=== PATIENT | male | born 1945 | race Caucasian/White ===

== ENCOUNTER 2020-04-12 06:09 | Day surgery (SDC) | payer MEDICARE, OTHER, SELFPAY ==
[2020-04-10 15:10] VITALS: BMI 26.4
--- NOTE | 2020-04-12 06:26 | W.PM.OPSUD ---
Surgery/Procedure H&P Update DATE OF PROCEDURE: April 12, 2020 DATE H&P PERFORMED: 03/16/20 H&P UPDATE INFORMATION: I have reviewed H&P completed within last 30 days, I have examined patient prior to procedure and No changes to prior documentation PREOP DIAGNOSIS: Screening colonoscopy PRIMARY INDICATION FOR PROCEDURE: The same PLANNED PROCEDURE: Operation Date: 04/12/20 07:00 Proposed Procedures p Colonoscopy 16190 Z12.11(Not Applicable) - Gary Alford MD
[2020-04-12 06:28] VITALS: BP 115/84; PULSE 62; RESP 20; TEMP 36.1; O2SAT 96
[2020-04-12] MEDS: sodium chloride 0.9% 1,000 ML 30 ML IV (06:37)
--- NOTE | 2020-04-12 06:40 | ANES.PREANE2 ---
Pre-Anesthetic Assessment Pre-Anesthetic Assessment: Height/Weight: Height 1.8 m Weight 86.183 kg Temp Pulse Resp BP Pulse Ox 97 F L 62 20 H 115/84 96 04/12/20 06:28 04/12/20 06:28 04/12/20 06:28 04/12/20 06:28 04/12/20 06:28 Preop Diagnosis: Screening colonoscopy Proposed Procedure: Operation Date: 04/12/20 07:00 Proposed Procedures p Colonoscopy 31691 Z12.11(Not Applicable) - Gary Alford MD Last intake: Intake Last Liquid Date 04/11/20 Last Liquid Time 20:00 Last Solid Date 04/10/20 Last Solid Time 23:59 Social: Social History: No alcohol and No tobacco Exam: Pre-Anes Outpt Exam: alert, oriented x 3, clear to auscultation bilaterally and regular rate & rhythm Airway: Submandibular: WNL MP: 2 Dentition: False History/ROS: No significant history except as noted and No significant complaints Pulmonary: Pulmonary: None reported CV/HEM: CV/HEM: HTN : : None reported Hepatic: Hepatic: None reported GI: GI: GERD Metabolic: Metabolic: None reported Musc/skel: Musc/skel: None reported Neuropsych: Neuropsych: None reported Anesthetic Plan: ASA status: 2 Anesthesia: MAC Risk of > 500 ml blood loss (7ml/kg in children): No Meds/Allergies Current Medications: Current Medications Generic Name Dose Route Start Last Admin Trade Name Freq PRN Reason Stop Dose Admin Sodium Chloride 1,000 mls @ 30 ml s/hr 04/12/20 06:30 04/12/20 06:37 Sodium Chloride 0.9% IV 30 mls/hr .Q24H LOUANN Administration PFSH Anesthesia PFSH: Medical History Constipation GERD (gastroesophageal reflux disease) Hypertension Screen for colon cancer Surgical History History of right inguinal hernia repair Family History Denies family history of Anesthesia complication Bleeding disorder Social History Smoking and tobacco status: never smoked Second hand smoke exposure: No Alcohol intake: never Adopted: No Caregiver/support person: Yes Lives independently: Yes Household members: spouse Housing: House Marital status: service: No Current occupational status: retired Current occupational exposures/hazards: No Pets and animals: No History of recent travel: No Sexually active: No Current gender identity: Male Leyla/Jehovah'S Witness: Gnosticism Special leyla needs: No Agree to transfusion: No Financial difficulty paying for basics: Decline to Answer Data Anesthesia Cardiac Studies: No Data to Display
[2020-04-12 07:11] VITALS: BP 112/71; PULSE 56; RESP 16; TEMP 36.4; O2SAT 96
--- NOTE | 2020-04-12 07:21 | ANE.PACU2 ---
Inpatient post-anesthesia follow up: Airway intact: Yes Vital signs: Temperature 97.6 F Pulse Rate 56 Respiratory Rate 16 Blood Pressure 112/71 Pulse Oximetry 96 Oxygen Delivery Me thod Nasal Cannula Oxygen Flow Rate 3 Fraction of Inspir ed Oxygen Hydration adequate: Yes Nausea and vomiting: No Mental status: Baseline
[2020-04-12 07:25] VITALS: BP 130/92; PULSE 53; RESP 16; O2SAT 99
== END 2020-04-12 07:30 | disposition home or self-care (01) ==
PROVIDERS: PCP Family Medicine; Visit Provider Surgery
PROC: 0DJD8ZZ Inspection of Lower Intestinal Tract, Via Natural or Artificial Opening Endoscopic (ICD-10-PCS; CPT 45378; principal; 2020-04-12 07:00)
DX: Z12.11 Encounter for screening for malignant neoplasm of colon (principal); D12.5 Benign neoplasm of sigmoid colon; I10 Essential (primary) hypertension; K21.9 Gastro-esophageal reflux disease without esophagitis
CPT/HCPCS: 12345; 45384; 88305; J2001; J2704; J7030

== ENCOUNTER → 2023-07-04 08:40 | Outpatient (BNVA) | payer MEDICARE, SELFPAY | PROVIDERS: PCP Family Medicine; Visit Provider Family Medicine | DX: Z51.81 Encounter for therapeutic drug level monitoring (principal); E78.5 Hyperlipidemia, unspecified; R73.03 Prediabetes; R35.0 Frequency of micturition; Z13.220 Encounter for screening for lipoid disorders | CPT/HCPCS: 80053; 80061; 83036; 84153; 85025 ==

== ENCOUNTER → 2024-04-29 09:38 | Outpatient (BNVA) | payer MEDICARE, SELFPAY | PROVIDERS: PCP Family Medicine; Visit Provider Family Medicine | DX: R10.13 Epigastric pain (principal); E78.5 Hyperlipidemia, unspecified; R35.0 Frequency of micturition; Z51.81 Encounter for therapeutic drug level monitoring; Z13.220 Encounter for screening for lipoid disorders; R01.1 Cardiac murmur, unspecified; K29.70 Gastritis, unspecified, without bleeding; I10 Essential (primary) hypertension; K59.00 Constipation, unspecified | CPT/HCPCS: 80053; 80061; 83690; 84153; 85025; 86141; 87338 ==

== ENCOUNTER → 2024-04-30 09:40 | Outpatient (BNVA) | payer MEDICARE, SELFPAY | PROVIDERS: PCP Family Medicine; Visit Provider Family Medicine | DX: K59.00 Constipation, unspecified (principal) | CPT/HCPCS: 87338 ==

== ENCOUNTER 2024-05-06 10:00 | Outpatient (CLI) | payer MEDICARE, OTHER, SELFPAY ==
--- NOTE | 2024-05-06 10:00 | USCV_ITS ---
Ted Fuentes Age: 78 Gender: M : 1945 Exam Date: 05/06/2024 10:22 Ordering Phys: Nino Rivas MD Technologist: Exam Location: [facility] [place] Indication: murmur BP: 130 / 80 HR: 76 Rhythm: Sinus Technical Quality: Adequate MEASUREMENTS (Male / Female) Normal Values 2D ECHO LV Diastolic Diameter PLAX 4.5 cm 4.2 - 5.9 / 3.9 - 5.3 cm IVS Diastolic Thickness 1.3 cm 0.6 - 1.0 / 0.6 - 0.9 cm IVS Systolic Thickness 1.6 cm LVPW Diastolic Thickness 1.2 cm 0.6 - 1.0 / 0.6 - 0.9 cm LVPW Systolic Thickness 1.7 cm LVOT Diameter 2.0 cm LV Ejection Fraction 2D Teich 69.9 % LV Ejection Fraction MOD 4C 52.3 % LV Ejection Fraction MOD 2C 70.6 % LV Ejection Fraction 2C AL 71.2 % LA Diameter 3.2 cm RA Systolic Volume 4C AL 55.4 ml RA Systolic Volume 4C MOD 52.8 ml M-MODE LA Ao Ratio MM 1.1 AV Cusp Separation MM 1.0 cm DOPPLER AV Peak Velocity 267.0 cm/s LVOT Peak Velocity 104.0 cm/s AV Area Cont Eq vti 1.6 cm squared AV Area Cont Eq pk 1.3 cm squared MV Peak Velocity 111.0 cm/s MV Area PHT 2.6 cm squared Mitral E to A Ratio 0.7 TV Peak Velocity 133.5 cm/s TR Peak Velocity 199.0 cm/s TR Peak Gradient 15.8 mmHg TV Peak E Velocity 64.0 cm/s Right Atrial Pressure 3.0 mmHg Pulmonary Artery Systolic Pressu 18.8 mmHg PV Peak Velocity 130.0 cm/s FINDINGS Left Ventricle Normal left ventricular size and systolic function, EF 65% . No regional wall motion abnormalities. Mild left ventricular hypertrophy. Grade I/IV diastolic dysfunction (abnormal relaxation filling pattern), normal to mildly elevated filling pressures. Right Ventricle The right ventricle is normal in size and function. Right Atrium The right atrium is normal in size. Left Atrium The left atrium is normal in size. Mitral Valve Structurally normal mitral valve. Aortic Valve Mild aortic valve stenosis, mean gradient 11 mmHg, MARINO 1.6 cm squared. Trace aortic valve regurgitation. Tricuspid Valve No gross abnormalities no Pulmonic Valve No pulmonary valve stenosis. Pericardium Normal pericardium without effusion. Aorta Normal ascending aorta dimension. IVC Normal inferior vena cava. CONCLUSIONS Normal left ventricular size and systolic function, EF 65% . No regional wall motion abnormalities. Mild left ventricular hypertrophy. Grade I/IV diastolic dysfunction (abnormal relaxation filling pattern), normal to mildly elevated filling pressures. Mild aortic valve stenosis, mean gradient 11 mmHg, MARINO 1.6 cm squared. Peak velocity of 2.67 m/s, with a peak gradient of 28 mmHg Trace aortic valve regurgitation. There is no pericardial effusion. There are no intracardiac masses. No similar previous studies are available for comparison Dr Hollie Villagran MD FACC (Electronically Signed) Final Date: 07 May 2024 01:21 S
== END 2024-05-06 10:04 | disposition home or self-care (01) ==
PROVIDERS: PCP Family Medicine; Visit Provider Family Medicine
DX: R01.1 Cardiac murmur, unspecified (principal); I95.1 Orthostatic hypotension; I50.30 Unspecified diastolic (congestive) heart failure
CPT/HCPCS: 93306

== ENCOUNTER 2024-05-21 10:54 | Outpatient (CLI) | payer MEDICARE, OTHER, SELFPAY ==
--- NOTE | 2024-05-21 11:00 | CTR_ITS ---
PROCEDURE INFORMATION: Exam: CT Abdomen And Pelvis With Contrast Exam date and time: 05/21/2024 12:05 PM Age: 78 years old Clinical indication: Abdominal pain; Localized; Lower; Patient HX: Persistent low abdomen pain and chronic constipation; Additional info: Persistent constipation/abdominal pain TECHNIQUE: Imaging protocol: Computed tomography of the abdomen and pelvis with contrast. Radiation optimization: All CT scans at this facility use at least one of these dose optimization techniques: automated exposure control; mA and/or kV adjustment per patient size (includes targeted exams where dose is matched to clinical indication); or iterative reconstruction. Contrast material: OMNI 350; Contrast volume: 100 ml; Contrast route: INTRAVENOUS (IV); COMPARISON: No relevant prior studies available. RADIATION DOSE METRICS: Total DLP (mGy-cm): 475.77 FINDINGS: Liver: Normal. No mass. Gallbladder and biliary ducts: Normal. No calcified stones. No ductal dilation. Pancreas: Normal. No ductal dilation. Spleen: Normal. No splenomegaly. Adrenal glands: Normal. No mass. Kidneys and ureters: Normal. No hydronephrosis. Stomach and bowel: Colonic diverticula are present although there are no CT findings to suggest diverticulitis. No bowel obstruction or wall thickening. Appendix: The appendix is visualized and appears normal. Intraperitoneal space: Unremarkable. No free air. No significant fluid collection. Vasculature: Unremarkable. No abdominal aortic aneurysm. Lymph nodes: Unremarkable. No enlarged lymph nodes. Urinary bladder: Unremarkable as visualized. Reproductive: Unremarkable as visualized. Bones/joints: Degenerative change is identified in the spine. Soft tissues: Unremarkable. CT/CT abdomen pelvis w con* [id number] IMPRESSION: There are no acute concerning abnormalities.
[2024-05-21] MEDS: iohexol 350 mg/mL 500 mL Btl (per mL) IV (12:10)
[2024-05-21] MEDS: iohexol 350 mg/mL 500 mL Btl (per mL) PO (12:10)
== END 2024-05-21 10:55 | disposition home or self-care (01) ==
LOC: RAD 10:55
PROVIDERS: PCP Family Medicine; Visit Provider Clinical Nurse Specialist Adult Health
DX: K59.00 Constipation, unspecified (principal); R10.13 Epigastric pain; K57.30 Diverticulosis of large intestine without perforation or abscess without bleeding
CPT/HCPCS: 74177; Q9967

== ENCOUNTER → 2024-09-08 08:58 | Outpatient (BNVA) | payer MEDICARE, OTHER, SELFPAY | PROVIDERS: PCP Family Medicine; Visit Provider Family Medicine | DX: R10.9 Unspecified abdominal pain (principal); K59.00 Constipation, unspecified; R10.13 Epigastric pain; R53.81 Other malaise; R53.83 Other fatigue; E55.9 Vitamin D deficiency, unspecified; Z51.81 Encounter for therapeutic drug level monitoring; E53.8 Deficiency of other specified B group vitamins | CPT/HCPCS: 80053; 82306; 82607; 83690; 83735; 84439; 84443; 85025; 86141 ==

== ENCOUNTER 2024-12-02 18:53 | Emergency (ER) | payer MEDICARE, OTHER, SELFPAY ==
--- NOTE | 2024-12-02 20:27 | CTR_ITS ---
PROCEDURE INFORMATION: Exam: CT Head Without Contrast Exam date and time: 12/02/2024 8:49 PM Age: 79 years old Clinical indication: Injury or trauma; Fall; Laceration; Without residual foreign body; Forehead; Additional info: Fall/head injury/open scalp wound TECHNIQUE: Imaging protocol: Computed tomography of the head without contrast. Radiation optimization: All CT scans at this facility use at least one of these dose optimization techniques: automated exposure control; mA and/or kV adjustment per patient size (includes targeted exams where dose is matched to clinical indication); or iterative reconstruction. COMPARISON: No relevant prior studies available. RADIATION DOSE METRICS: Total DLP (mGy-cm): 1224.28 FINDINGS: Brain: Mineralization of bilateral basal ganglia, age-related. Age related diffuse parenchymal volume loss. No recent infarct, intracranial bleed or mass effect. Cerebral ventricles: Ex vacuo dilatation of the ventricles. Paranasal sinuses: Visualized sinuses are unremarkable. No fluid levels. Mastoid air cells: Visualized mastoid air cells are well aerated. Bones: Unremarkable. No acute fracture. Soft tissues: There is a left frontal scalp laceration. CT/CT head wo con* [id number] IMPRESSION: No acute intracranial posttraumatic changes.
--- NOTE | 2024-12-02 20:27 | CTR_ITS ---
PROCEDURE INFORMATION: Exam: CT Cervical Spine Without Contrast Exam date and time: 12/02/2024 8:52 PM Age: 79 years old Clinical indication: Injury or trauma; Fall; Laceration; Without foreign body; Additional info: Fall/head injury TECHNIQUE: Imaging protocol: Computed tomography of the cervical spine without contrast. Radiation optimization: All CT scans at this facility use at least one of these dose optimization techniques: automated exposure control; mA and/or kV adjustment per patient size (includes targeted exams where dose is matched to clinical indication); or iterative reconstruction. COMPARISON: CT head wo con* [id number] 12/02/2024 8:49 PM RADIATION DOSE METRICS: Total DLP (mGy-cm): 214.37 FINDINGS: Bones: The cervical spine demonstrates mild degenerative changes at multiple levels. Mild degenerative at the anterior C1-C2 articulation. No compression deformity. No acute fracture. No spondylolisthesis. Lungs: Bilateral apical fibrotic changes. Vasculature: There are bilateral carotid artery calcified atheromas. Soft tissues: Unremarkable. CT/CT cervical spin wo con* [id number] IMPRESSION: No acute posttraumatic changes in the cervical spine.
--- NOTE | 2024-12-02 20:52 | ED_ITS ---
HPI - Wound/Laceration General: Chief Complaint: Wound/Laceration Stated Complaint: Fell and hit head Time Seen by Provider: 12/02/24 19:48 Source: patient and family Mode of arrival: ambulatory Limitations: no limitations History of Present Illness: Patient is a 79-year-old male who presents the emergency department with head injury occurring few hours prior to arrival. Patient reportedly tripped hit his head on the corner of [facility], he is not on blood thinners and did not lose consciousness though he does have a pretty extensive laceration to left parietal scalp region. Bleeding is controlled with direct pressure. Tetanus not up-to-date. Has not had any trouble walking, or demonstrate any other focal neurological deficits. Family in the room states he has been acting appropriately at baseline. No vomiting, seizure-like activity, or other symptoms. States pain is in control, he just feels a burning sensation to his scalp. No other injuries with the fall. Onset (ago): hour(s) Location: scalp Place: home Patient tetanus UTD: No Context: accidental Associated symptoms: Reports no associated symptoms; Denies chills, fever(s), nausea or vomiting Treatments prior to arrival: bandage Related Data Previous Rx's ?Medication ?Instructions ?Recorded omeprazole 40 mg capsule,delayed See Rx Instructions . Route 03/23/24 release .COMPLEX #90 caps pravastatin 40 mg tablet See Rx Instructions .Route 0 03/23/24 .COMPLEX #90 tabs lisinopril 2.5 mg tablet See Rx Instructions .Route 0 06/07/24 .COMPLEX #60 tabs lactulose 10 gram/15 mL (15 mL) 10 g (15 mL) PO BID NC N 07/27/24 oral solution constipation #300 mL linaclotide 145 mcg capsule 145 mcg PO DAILY #30 caps 09/08/24 (Linzess) cholecalciferol (vitamin D3) 50 50 mcg PO DAILY #30 ca ps 09/21/24 mcg (2,000 unit) capsule amoxicillin 875 mg-potassium 1 tab PO BID 10 days #20 tabs 12/02/24 clavulanate 125 mg tablet Allergies Allergy/AdvReac Type Severity Reaction Status Date / Time azithromycin Allergy ADR-Nausea Verified 12/02/24 19:18 Review of Systems General: Reports: 10 or more systems reviewed and unremarkable except in HPI and below Const: Reports: other (Reports fall/head injury); Denies: fever(s) or chills Eyes: Denies: change in vision Card: Denies: chest pain Resp: Denies: dyspnea GI: Denies: abdominal pain, nausea, vomiting or diarrhea Musc: Denies: neck pain, extremity pain or joint pain Skin/Breast: Reports: new lesions (Laceration to left parietal scalp); Denies: rash, skin pain or skin tenderness Neuro: Denies: headache(s), numbness in extremities, weakness in extremities, lack of coordination, difficulty walking, dizziness, confusion, behavioral changes, Slurred speech present or seizure-like activity [facility] PFSH: Medical History GERD (gastroesophageal reflux disease) Hypertension Constipation Screen for colon cancer Surgical History History of right inguinal hernia repair Family History Mother Valvular heart disease Lung disease Father CAD (coronary artery disease) Denies family history of Anesthesia complication Bleeding disorder Social History Smoking and tobacco/nicotine status: never used tobacco/nicotine Second hand smoke exposure: No Alcohol intake: current Alcohol intake frequency: holidays/special occasions only Substance/Drug Use: never Additional social history: Chews tobacco - 1 can every 1-2 days [email or web address] 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 Adopted: No Caregiver/support person: Yes Lives independently: Yes Household members: spouse Housing: House Marital status: service: No Current occupational status: retired Current occupational exposures/hazards: No Pets and animals: No Sexually active: No Do you think of yourself as: Straight/Heterosexual Current gender identity: Male Leyla/Catholic: Tenriism Special leyla needs: No Agree to transfusion: No Physical Exam Const: COMMON NORMALS: no acute distress, patient oriented x3 and no limitations GENERAL APPEARANCE: cooperative, comfortable and well developed ORIENTATION/CONSCIOUSNESS: Yes awake, Yes oriented to person, Yes oriented to place and Yes oriented to time HENMT: OTHER: No Houser sign or raccoon eyes. There is a very large, shear type laceration to left parietal scalp that comes in contact with the hairline of the forehead. Little to no approximation with this wound and questionable evidence of depth directly to the skull. No active bleeding. Contaminated by hair, no other obvious contamination that is organic. Eye: COMMON NORMALS: Equal, round and reactive pupils present, EOMs intact bilaterally and conjunctivae normal CONJUNCTIVA: Yes conjunctivae normal PUPIL: Yes Equal, round and reactive pupils present OTHER: Eyes track midline, no nystagmus. Neck/C-Spine: COMMON NORMALS: full ROM, supple and no JVD Resp: COMMON NORMALS: normal respiratory effort, No retractions, No use of accessory muscles and clear to auscultation bilaterally AUSCULTATION: clear to auscultation bilaterally Cardio: COMMON NORMALS: no JVD, regular rate, regular rhythm, No clicks present (Cardio), No murmurs present (Cardio) and No rub (Cardio) RATE: regular rate RHYTHM: regular rhythm GI: COMMON NORMALS: Normal to inspection, nondistended, normoactive bowel sounds present, Soft to palpation and non-tender AUSCULTATION: Yes normoactive bowel sounds PALPATION: Yes Soft to palpation RECTAL EXAM: Yes deferred Extremity: COMMON NORMALS: normal to inspection, full ROM and capillary refill normal Neuro: COMMON NORMALS: patient oriented x3, CN's II-XII intact bilaterally, moves all extremities, no focal motor deficits and no sensory deficits noted SENSORIUM/ORIENTATION: Yes oriented to person, Yes oriented to place and Yes oriented to time COORDINATION/BALANCE: [id number] test normal and [id number] test normal SPEECH: speech normal GAIT: Yes Normal gait present MOTOR EXAM: 5/5 motor strength present throughout, Pronator motor function not present, no tremor noted, no asterixis and Motor fasciculations not present COORDINATION: [id number] test normal and [id number]-ps-[id number] test normal Skin: COMMON NORMALS: no rashes or lesions noted GENERAL SKIN EXAM: no rashes or lesions noted Course Vital Signs: Vital signs: Vital Signs Pulse Rate 74 12/02/24 21:20 Blood Pressure 102/55 12/02/24 21:20 Pulse Oximetry 94 12/02/24 21:20 Oxygen Delivery Me thod Room Air 12/02/24 21:20 MDM - Wound/Laceration Medical Decision Making Patient fell causing extensive laceration to left parietal scalp. Head and neck CT did not demonstrate any intracranial findings or posttraumatic changes, respectively. He was not on a blood thinner and bleeding was controlled on arrival. There was essentially no approximation of the wound as there was shear type laceration and missing skin evidence. Evidence to that this was directly to the base of the skull, however could be overlying adipose tissue. Ultimately I spoke with plastic surgery at [facility], Dr. Singh, who kindly agrees to see the patient tomorrow in the office and provided number to call. She also recommended extensive irrigation with mixture Betadine normal saline, applying triple antibiotic and covering with Xeroform dressing. Will start the patient on Augmentin and have him return in the meantime with any new or concerning symptoms. Patient and family in the room agreed with this plan. His tetanus was updated today. Lab Data Radiology Impressions Cervical Spine CT 12/02/24 20:27 IMPRESSION: No acute posttraumatic changes in the cervical spine. Head CT 12/02/24 20:27 IMPRESSION: No acute intracranial posttraumatic changes. All radiology interpretation(s) finalized by discharge Discharge Plan Discharge Patient Disposition: Home Clinical Impression: Open head injury Qualifiers: Encounter type: initial encounter Qualified Code(s): S01.90XA - Unspecified open wound of unspecified part of head, initial encounter Condition: Stable Prescriptions: New amoxicillin-pot clavulanate 875-125 mg tablet 1 tab PO BID 10 Days Qty: 20 0RF No Action Linzess 145 mcg capsule 145 mcg PO DAILY Qty: 30 6RF lisinopril 2.5 mg tablet See Rx Instructions .ROUTE .COMPLEX Qty: 60 3RF Dose Instruction: TAKE 1 TABLET BY MOUTH EVERY DAY Rx Instructions: TAKE 1 TABLET BY MOUTH EACH AM and extra 2.5mg in the evening if BP>140/80 lactulose 10 gram/15 mL (15 mL) solution 10 g PO BID PRN (Reason: constipation) Qty: 300 3RF omeprazole 40 mg capsule,delayed release(DR/EC) See Rx Instructions .ROUTE .COMPLEX Qty: 90 3RF Dose Instruction: TAKE 1 CAPSULE BY MOUTH EVERY MORNING Rx Instructions: TAKE 1 CAPSULE BY MOUTH EVERY MORNING pravastatin 40 mg tablet See Rx Instructions .ROUTE .COMPLEX Qty: 90 3RF Dose Instruction: TAKE 1 TABLET BY MOUTH AT BEDTIME Rx Instructions: TAKE 1 TABLET BY MOUTH AT BEDTIME cholecalciferol (vitamin D3) 50 mcg (2,000 unit) capsule 50 mcg PO DAILY Qty: 30 6RF Discharge Orders: Discharge ED (Routine); Ordered 12/02/24 Ordered By: Ted Henderson Referrals: Nino Rivas MD [Primary Care Provider] - Activity Restrictions/Additional Instructions: Please keep the wound covered and take the antibiotics as prescribed. You will call [facility] plastic surgery tomorrow morning at to schedule a ppointment tomorrow for consultation. Address for this is [address] [place] [id number]. Return in the meantime with any new or worsening. Ibuprofen and Tylenol for pain. Your tetanus has been updated today 12/02/2024. Print Language: [place] Coding Level of Care Code ED [employer] Rep[employer]cer for Paul Dietz
[2024-12-02 21:20] VITALS: BP 102/55; PULSE 74; O2SAT 94
[2024-12-02] MEDS: mupirocin oint 22 gm 1 APPLIC TOPICAL (22:00)
[2024-12-02] MEDS: tetanus-dipt-pertussis 0.5 mL SDV IM (22:00)
[2024-12-02] MEDS: amoxicillin-clav 875-125 mg Tablet 1 TAB PO (22:00)
[2024-12-02 22:08] VITALS: BP 109/64; PULSE 74; O2SAT 96
== END 2024-12-02 22:09 | disposition home or self-care (01) ==
PROVIDERS: Emergency Provider Physician Assistant; PCP Family Medicine
DX: S01.90XA Unspecified open wound of unspecified part of head, initial encounter (principal); I10 Essential (primary) hypertension; W01.119A Fall on same level from slipping, tripping and stumbling with subsequent striking against unspecified sharp object, initial encounter
CPT/HCPCS: 70450; 72125; 90471; 90715; 99284

== ENCOUNTER 2024-12-05 10:39 | Emergency (ER) | payer MEDICARE, OTHER, SELFPAY ==
[2024-12-05 10:44] VITALS: PULSE 62; RESP 16; TEMP 36.7; O2SAT 94; BMI 25.5
--- NOTE | 2024-12-05 10:54 | CTR_ITS ---
PROCEDURE INFORMATION: Exam: CT Head Without Contrast Exam date and time: 12/05/2024 11:05 AM Age: 79 years old Clinical indication: Injury or trauma; Fall; Blunt trauma (contusions or hematomas); Additional info: Trauma, unsteady on feet TECHNIQUE: Imaging protocol: Computed tomography of the head without contrast. Radiation optimization: All CT scans at this facility use at least one of these dose optimization techniques: automated exposure control; mA and/or kV adjustment per patient size (includes targeted exams where dose is matched to clinical indication); or iterative reconstruction. COMPARISON: CT head wo con* [id number] 12/02/2024 8:49 PM RADIATION DOSE METRICS: Total DLP (mGy-cm): 1122.3 FINDINGS: Brain: [id number] periventricular white matter hypoattenuation. Diffuse age-appropriate cortical atrophy. No acute intracranial hemorrhage. Cerebral ventricles: No ventriculomegaly. Paranasal sinuses: Visualized sinuses are unremarkable. No fluid levels. Mastoid air cells: Visualized mastoid air cells are well aerated. Bones: Unremarkable. No acute fracture. Soft tissues: Anterior scalp swelling, hematoma as well as subcutaneous emphysema. Left anterior scalp skin yohannes are visualized. Vasculature: Calcification of the intracranial vertebral arteries. Calcification of the cavernous internal carotid arteries. CT/CT head wo con* [id number] IMPRESSION: 1. Anterior scalp swelling, hematoma and subcutaneous emphysema with visualized skin yohannes. No evidence of acute intracranial abnormality. 2. Pyjn-ty-bdvehubl chronic ischemic small-vessel disease. No acute intracranial hemorrhage.
[2024-12-05 12:21] VITALS: BP 131/73; PULSE 60; O2SAT 96
--- NOTE | 2024-12-05 14:41 | ED_ITS ---
HPI - Weakness General: Chief complaint: Weakness Stated complaint: unstabled (3 days post surgery) Time Seen by Provider: 12/05/24 10:43 History of Present Illness: This patient is a 79-year-old white male who presents to the emergency department with feeling off balance/unsteady on his feet. Patient fell on and sustained a head injury. He was evaluated here. He did have a scalp laceration which were repaired with yohannes. He did undergo head CT and C-spine CT during that visit and those were normal. He has not had any nausea or vomiting. No headache. Review of Systems General: Reports: 10 or more systems reviewed and unremarkable except in HPI and below Neuro: Reports: lack of coordination PFSH ED PFSH: Medical History GERD (gastroesophageal reflux disease) Hypertension Constipation Screen for colon cancer Surgical History History of right inguinal hernia repair Family History Mother Valvular heart disease Lung disease Father CAD (coronary artery disease) Denies family history of Anesthesia complication Bleeding disorder Social History Smoking and tobacco/nicotine status: never used tobacco/nicotine Second hand smoke exposure: No Alcohol intake: current Alcohol intake frequency: holidays/special occasions only Substance/Drug Use: never Additional social history: Chews tobacco - 1 can every 1-2 days [employer] fan Adopted: No Caregiver/support person: Yes Lives independently: Yes Household members: spouse Housing: House Marital status: service: No Current occupational status: retired Current occupational exposures/hazards: No Pets and animals: No Sexually active: No Do you think of yourself as: Straight/Heterosexual Current gender identity: Male Leyla/Episcopal: Catholic Special leyla needs: No Agree to transfusion: No Physical Exam Const: COMMON NORMALS: no acute distress, patient oriented x3 and no limitations GENERAL APPEARANCE: cooperative and comfortable HENMT: COMMON NORMALS: Normal nasal mucous membranes and turbinates present, moist oral mucous membranes and oropharynx normal FACE & SINUS: normal facial exam NOSE: Normal nasal mucous membranes and turbinates present OTHER: Ecchymosis beneath both eyes worse on the right. Scalp laceration intact with yohannes. Eye: COMMON NORMALS: Equal, round and reactive pupils present, EOMs intact bilaterally and conjunctivae normal GENERAL EYE: appearance normal, both eyes and all related structures CONJUNCTIVA: Yes conjunctivae normal PUPIL: Yes Equal, round and reactive pupils present Neck/C-Spine: COMMON NORMALS: supple and no JVD Chest: COMMONS NORMALS: normal inspection of the chest Resp: COMMON NORMALS: normal respiratory effort and clear to auscultation bilaterally AUSCULTATION: clear to auscultation bilaterally Cardio: COMMON NORMALS: no JVD, regular rate, regular rhythm, No gallops present (Cardio), No murmurs present (Cardio) and No rub (Cardio) RATE: regular rate RHYTHM: regular rhythm GI: COMMON NORMALS: Normal to inspection, nondistended, normoactive bowel sounds present, Soft to palpation and non-tender AUSCULTATION: Yes normoacti ve bowel sounds PALPATION: Yes Soft to palpation : COMMON NORMALS: Yes no CVA tenderness BLADDER/KIDNEY EXAM: Yes no CVA tenderness Back/Pelvis: COMMON NORMALS: no CVA tenderness and thoracic and lumbar spine normal to inspection Extremity: COMMON NORMALS: normal to inspection Neuro: COMMON NORMALS: patient oriented x3 and CN's II-XII intact bilaterally Psych: COMMON NORMALS: mental status grossly normal, Normal thought process present and cooperative THOUGHT PROCESS: Normal thought process present Skin: COMMON NORMALS: no rashes or lesions noted, turgor normal and no jaundice GENERAL SKIN EXAM: no rashes or lesions noted and turgor normal Course Vital Signs: Vital signs: Vital Signs Temperature 98.1 F 12/05/24 10:44 Pulse Rate 60 12/05/24 12:21 Respiratory Rate 16 12/05/24 10:44 Blood Pressure 131/73 12/05/24 12:21 Pulse Oximetry 96 12/05/24 12:21 Oxygen Delivery Me thod Room Air 12/05/24 10:44 MDM - Weakness Medical Decision Making Head CT was read by the radiologist as nothing acute. Patient was reassured. Follow-up with primary care provider as needed. He was discharged in stable condition. Lab Data Radiology Impressions Head CT 12/05/24 10:54 IMPRESSION: 1. Anterior scalp swelling, hematoma and subcutaneous emphysema with visualized skin yohannes. No evidence of acute intracranial abnormality. 2. Epmt-rg-[id number] chronic ischemic small-vessel disease. No acute intracranial hemorrhage. All radiology interpretation(s) finalized by discharge Discharge Plan Discharge Patient Disposition: Home Clinical Impression: Head injury Qualifiers: Encounter type: subsequent encounter Qualified Code(s): S09.90XD - Unspecified injury of head, subsequent encounter Condition: Stable Prescriptions: No Action lisinopril 2.5 mg tablet See Rx Instructions .ROUTE .COMPLEX Qty: 60 3RF Dose Instruction: TAKE 1 TABLET BY MOUTH EVERY DAY Rx Instructions: TAKE 1 TABLET BY MOUTH EACH AM and extra 2.5mg in the evening if BP>140/80 omeprazole 40 mg capsule,delayed release(DR/EC) See Rx Instructions .ROUTE .COMPLEX Qty: 90 3RF Dose Instruction: TAKE 1 CAPSULE BY MOUTH EVERY MORNING Rx Instructions: TAKE 1 CAPSULE BY MOUTH EVERY MORNING pravastatin 40 mg tablet See Rx Instructions .ROUTE .COMPLEX Qty: 90 3RF Dose Instruction: TAKE 1 TABLET BY MOUTH AT BEDTIME Rx Instructions: TAKE 1 TABLET BY MOUTH AT BEDTIME cholecalciferol (vitamin D3) 50 mcg (2,000 unit) capsule 50 mcg PO DAILY Qty: 30 6RF amoxicillin-pot clavulanate 875-125 mg tablet 1 tab PO BID 10 Days Qty: 20 0RF naproxen sodium [Aleve] 220 mg Tablet 440 mg PO Q12H PRN (Reason: Pain) Discharge Orders: Discharge ED (Routine); Ordered 12/05/24 Ordered By: Pedro Luis Bazan Referrals: Nino Rivas MD [Primary Care Provider] - Patient Instructions: Head Injury (DC) Print Language: Micronesian Coding Level of Care Code ED 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 Route 03/23/24 release .COMPLEX #90 caps pravastatin 40 mg tablet See Rx Instructions .Route 0 03/23/24 .COMPLEX #90 tabs lisinopril 2.5 mg tablet See Rx Instructions .Route 0 06/07/24 .COMPLEX #60 tabs cholecalciferol (vitamin D3) 50 50 mcg PO DAILY #30 ca ps 09/21/24 mcg (2,000 unit) capsule amoxicillin 875 mg-potassium 1 tab PO BID 10 days #20 tabs 12/02/24 clavulanate 125 mg tablet Allergies Allergy/AdvReac Type Severity Reaction Status Date / Time azithromycin Allergy ADR-Nausea Verified 12/02/24 19:18
== END 2024-12-05 12:21 | disposition home or self-care (01) ==
PROVIDERS: Emergency Provider Emergency Medicine; PCP Family Medicine
DX: S09.90XD Unspecified injury of head, subsequent encounter (principal); X58.XXXD Exposure to other specified factors, subsequent encounter; I10 Essential (primary) hypertension
CPT/HCPCS: 70450; 99284

== ENCOUNTER → 2024-12-27 15:01 | Outpatient (BNVA) | payer MEDICARE, OTHER, SELFPAY | PROVIDERS: PCP Family Medicine; Visit Provider Family Medicine | DX: R10.9 Unspecified abdominal pain (principal) | CPT/HCPCS: 82274; 83630; 83993; 87045; 87177; 87209; 87427; 87449 ==

== ENCOUNTER → 2025-01-11 11:14 | Outpatient (BNVA) | payer MEDICARE, OTHER, SELFPAY | PROVIDERS: PCP Family Medicine; Referring Provider Family Medicine; Visit Provider Surgery | DX: K59.00 Constipation, unspecified (principal); K63.5 Polyp of colon; R10.13 Epigastric pain | CPT/HCPCS: 99203 ==

== ENCOUNTER 2025-01-20 08:16 | Day surgery (SDC) | payer MEDICARE, OTHER, SELFPAY ==
[2025-01-20 08:34] VITALS: BMI 24.4
[2025-01-20 08:35] VITALS: BP 136/88; PULSE 69; RESP 18; TEMP 36.8; O2SAT 96
--- NOTE | 2025-01-20 08:44 | W.PM.OPSUD ---
Surgery/Procedure H&P Update DATE OF PROCEDURE: January 20, 2025 DATE H&P PERFORMED: 12/24/24 H&P UPDATE INFORMATION: I have reviewed H&P completed within last 30 days, I have examined patient prior to procedure, No changes to prior documentation, Changes to prior documentation as noted here and Risks and benefits of the procedure reviewed PLANNED PROCEDURE: Operation Date: 01/20/25 10:20 Proposed Procedures p EGD [id number] G0105 Z12.11 K59.00 K63.5 R10.13(Not Applicable) - Ted Kong MD s Colonoscopy(Not Applicable) - Ted Kong MD
[2025-01-20] MEDS: sodium chloride 0.9% 1,000 ML 15 ML IV (08:45)
--- NOTE | 2025-01-20 09:30 | ANES.PREANE2 ---
Pre-Anesthetic Assessment Height/Weight: Height 1.8 m Weight 79.379 kg Temp Pulse Resp BP Pulse Ox 98.3 F 69 18 136/88 96 01/20/25 08:35 01/20/25 08:35 01/20/25 08:35 01/20/25 08:35 01/20/25 08:35 Preop Diagnosis: screening Operation Date: 01/20/25 10:20 Proposed Procedures p EGD [id number] G0105 Z12.11 K59.00 K63.5 R10.13(Not Applicable) - Ted Kong MD s Colonoscopy(Not Applicable) - Ted Kong MD Familial anesthetic complications: none Was Beta Johnny taken within 24 hours: N/A Was Clonidine taken within 24 hours: N/A Last intake: Intake Last Liquid Date 01/19/25 Last Liquid Time 20:00 Last Solid Date 01/18/25 Last Solid Time 18:00 Social Tobacco and No alcohol chews tobacco Exam alert, oriented x 3, clear to auscultation bilaterally and regular rate & rhythm Airway Submandibular: within normal limits Cervical ROM: within normal limits Mallampati: Class II Dentition: false History/ROS No significant history except as noted and No significant complaints Pulmonary None reported CV/HEM Hypertension None reported Hepatic None reported GI Gastroesophageal Reflux Disease Metabolic None reported Musc/skel None reported Neuropsych None reported Anesthetic Plan ASA status: 2 Anesthesia: MAC Risk of > 500 ml blood loss (7ml/kg in children): No Medications/Allergies Home Medications ?Medication ?Instructions ?Recorded ?Confirmed ?Last Taken ?Type dicyclomine 10 mg capsule 10 mg PO TID #60 caps 01/06/25 01/18/25 01/19/25 Rx polyethylene glycol 3350 17 4 g PO DAILY 01/11/25 01/18/25 01/19/25 History gram/dose oral powder (Miralax) lisinopril 2.5 mg tablet 2.5 mg PO BEDTIME 01/18/25 01/18/25 01/19/25 History omeprazole 40 mg capsule,delayed 40 mg PO QAM 01/18/25 01/18/25 01/19/25 History release Allergies Allergy/AdvReac Type Severity Reaction Status Date / Time No Known Allergies Allergy Verified 01/20/25 08:30 Current Medications Generic Name Dose Route Start Last Admin Trade Name Freq PRN Reason Stop Dose Admin Sodium Chloride 1,000 mls @ 15 mls/hr 01/20/25 08:23 01/20/25 08:45 Sodium Chloride 0.9% IV 01/21/25 08:22 15 mls/hr .Q24H PRN Administration COLONOSCOPY FLUIDS PFSH Anesthesia Medical History GERD (gastroesophageal reflux disease) Hypertension Constipation Screen for colon cancer Surgical History History of right inguinal hernia repair Family History Mother Valvular heart disease Lung disease Father CAD (coronary artery disease) Denies family history of Anesthesia complication Bleeding disorder Social History Smoking and tobacco/nicotine status: never used tobacco/nicotine Second hand smoke exposure: No Alcohol intake: current Alcohol intake frequency: holidays/special occasions only Substance/Drug Use: never Additional social history: Chews tobacco - 1 can every 1-2 days [employer] fan Adopted: No Caregiver/support person: Yes Lives independently: Yes Household members: spouse Housing: House Marital status: service: No Current occupational status: retired Current occupational exposures/hazards: No Pets and animals: No Sexually active: No Do you think of yourself as: Straight/Heterosexual Current gender identity: Male Leyla/Yarsani: [employer] Special leyla needs: No Agree to transfusion: No Data Anesthesia Cardiac Studies: Echocardiogram 05/06/24
[2025-01-20 10:32] VITALS: BP 108/77; PULSE 61; RESP 18; TEMP 36.2; O2SAT 96
[2025-01-20 11:03] VITALS: BP 119/67; PULSE 63; RESP 18; O2SAT 98
--- NOTE | 2025-01-20 11:28 | ANE.PACU2 ---
Inpatient post-anesthesia follow up: Airway intact: Yes Vital signs: Temperature 97.2 F Pulse Rate 63 Respiratory Rate 18 Blood Pressure 119/67 Pulse Oximetry 98 Oxygen Delivery Me thod Room Air Oxygen Flow Rate Fraction of Inspir ed Oxygen Hydration adequate: Yes Nausea and vomiting: No Pain level: 1 Mental status: Baseline
== END 2025-01-20 11:20 | disposition home or self-care (01) ==
PROVIDERS: PCP Family Medicine; Visit Provider Surgery
PROC: 0DJ08ZZ Inspection of Upper Intestinal Tract, Via Natural or Artificial Opening Endoscopic (ICD-10-PCS; principal; 2025-01-20 10:20)
PROC: 0DJD8ZZ Inspection of Lower Intestinal Tract, Via Natural or Artificial Opening Endoscopic (ICD-10-PCS; CPT 45378; 2025-01-20 10:20)
DX: Z12.11 Encounter for screening for malignant neoplasm of colon (principal); K59.00 Constipation, unspecified; K21.9 Gastro-esophageal reflux disease without esophagitis; K44.9 Diaphragmatic hernia without obstruction or gangrene; I10 Essential (primary) hypertension; Z79.899 Other long term (current) drug therapy; F17.220 Nicotine dependence, chewing tobacco, uncomplicated
CPT/HCPCS: 43239; 88305; G0121; J2704; J7030

== ENCOUNTER → 2025-02-15 09:00 | Outpatient (BNVA) | payer MEDICARE, OTHER, SELFPAY | PROVIDERS: PCP Family Medicine; Visit Provider Surgery | DX: Z09 Encounter for follow-up examination after completed treatment for conditions other than malignant neoplasm (principal) | CPT/HCPCS: 99213 ==

== ENCOUNTER → 2025-05-25 09:08 | Outpatient (BNVA) | payer MEDICARE, OTHER, SELFPAY | PROVIDERS: PCP Family Medicine; Visit Provider Family Medicine | DX: R30.0 Dysuria (principal); R35.0 Frequency of micturition; E53.8 Deficiency of other specified B group vitamins; R10.9 Unspecified abdominal pain; Z51.81 Encounter for therapeutic drug level monitoring; E55.9 Vitamin D deficiency, unspecified | CPT/HCPCS: 80053; 81000; 82306; 82607; 83690; 84153; 85025; 86140; 87086 ==

== ENCOUNTER 2025-06-03 16:20 | Outpatient (CLI) | payer MEDICARE, OTHER, SELFPAY ==
--- NOTE | 2025-06-03 17:00 | US_ITS ---
WS: [id number] RENAL ULTRASOUND URINARY BLADDER ULTRASOUND HISTORY: Urinary frequency [id number] COMPARISON: None available. TECHNIQUE: 2-D and color Doppler imaging of the kidney submitted. Right kidney: 9.9 cm x 5.5 cm x 5.0 cm. Normal echogenicity with no hydronephrosis or mass. Left kidney: 10.3 cm x 5.6 cm x 5.1 cm. Normal echogenicity with no hydronephrosis or mass. Aorta: Normal. Urinary Bladder: Normal distention. Seen only on one image is a nodule at the base of the urinary bladder measuring 12 mm. This may be the prostate gland encroaching into the bladder. This is not identified on additional imaging. Prevoid bladder volume: 210 mL. Post void bladder volume 201 mL. Enlarged heterogeneous prostate. US/US renal BI with PV bladder IMPRESSION: 1. Normal size kidneys with no obstruction or atrophy. 2. Large amount of post void bladder volume residual. 3. 12 mm nodule in the base of the urinary bladder may be associated with the enlarged prostate. This is only seen on one image. This can be further evaluate d by urology or follow-up urinary bladder ultrasound in 6 to 8 weeks.
== END 2025-06-03 16:21 | disposition home or self-care (01) ==
LOC: RAD 16:21
PROVIDERS: PCP Family Medicine; Visit Provider Family Medicine
DX: N40.1 Benign prostatic hyperplasia with lower urinary tract symptoms (principal); R35.0 Frequency of micturition
CPT/HCPCS: 76770; 76857

== ENCOUNTER → 2025-06-07 14:58 | Outpatient (BNVA) | payer MEDICARE, OTHER, SELFPAY | PROVIDERS: PCP Family Medicine; Visit Provider Family Medicine | DX: Z51.81 Encounter for therapeutic drug level monitoring (principal); R74.01 Elevation of levels of liver transaminase levels; D69.6 Thrombocytopenia, unspecified | CPT/HCPCS: 80053; 85025; 86140 ==

== ENCOUNTER 2025-06-17 06:50 | Outpatient (CLI) | payer MEDICARE, OTHER, SELFPAY ==
--- NOTE | 2025-06-17 07:15 | MR_ITS ---
WS: [id number] MRI HEAD WITH CONTRAST TECHNIQUE: Sagittal T1, T2 axial, T2 axial FLAIR, axial susceptibility weighted imaging, axial diffusion weighted images, and coronal T2 images were obtained. Pre and post-T1 axial and post T1 coronal images. ADC and FSPGR images. CLINICAL INFORMATION: Vertigo, memory changes COMPARISON: CT 12/05/2024 FINDINGS: No evidence of restricted diffusion to suggest acute ischemia. Mild small vessel changes with moderate parenchymal volume loss. Moderate symmetric atrophy temporal lobes and hippocampal formations. Paranasal sinuses and mastoid air cells are well aerated. Normal posterior nasopharynx. No hemosiderin on the susceptibly weighted images. No abnormal gadolinium enhancement. Normal optic chiasm and pituitary infundibulum. MR/MR head wo/w con [id number] IMPRESSION: 1. No evidence of restricted diffusion to suggest acute ischemia. 2. Mild small vessel changes. Moderate parenchymal volume loss. 3. No hemosiderin. 4. Mild to moderate symmetric atrophy temporal lobes and hippocampal formation s. 5. No abnormal enhancement.
[2025-06-17] MEDS: gadobenate dimeglumine 20 mL vial 17 ML IV (07:46)
== END 2025-06-17 06:51 | disposition home or self-care (01) ==
LOC: RAD 06:51
PROVIDERS: PCP Family Medicine; Visit Provider Family Medicine
DX: R42 Dizziness and giddiness (principal); G31.89 Other specified degenerative diseases of nervous system; I67.82 Cerebral ischemia
CPT/HCPCS: 70553; A9577

== ENCOUNTER 2025-06-21 07:57 | Outpatient (CLI) | payer MEDICARE, OTHER, SELFPAY ==
--- NOTE | 2025-06-21 09:00 | CT_ITS ---
WS: [id number] CT ABDOMEN AND PELVIS WITH CONTRAST HISTORY: Abdominal pain TECHNIQUE: Imaging performed of the abdomen and pelvis with IV contrast. Single phase imaging of the abdomen. Coronal and sagittal reformats are submitted. All CT scans at [facility] use at least one of these dose optimization techniques: automated exposure control; mA and/or kV adjustment per patient size (includes targeted exams where dose is matched to clinical indication); or iterative reconstruction. IV CONTRAST: Omnipaque 350; 100 mL IV. Oral contrast: Yes. DLP: 451.33 mGy.cm COMPARISON: 05/21/2024 Lower thorax: Lung bases are clear. Heart is normal size. Small hiatal hernia. Liver/biliary system: Normal size with no intrahepatic dilatation. Prominent portal vein. Gallbladder: Normal. No gallstones or wall thickening. No pericholecystic fluid. Pancreas: Diffuse atrophy and fatty replacement. No mass. No pancreatitis. Spleen: Spleen is enlarged measuring 14.2 cm in length. Prior measurement 11.5 cm. 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 Adrenal glands: Normal. Right kidney: Normal. Left kidney: Normal. Aorta: Mild atherosclerosis with no aneurysm. Lymphadenopathy: None. Free fluid: None. GI tract: Nondistended stomach. No small bowel obstruction. Moderate to severe diffuse constipation. Normal appendix. No obstruction or colitis identified. There are few diverticula in the sigmoid colon without diverticulitis. Abdominal wall: Fat containing umbilical hernia. Pelvis: Prostate gland is enlarged encroaching into the bladder and heterogeneous. Fat-containing LEFT inguinal hernia. Bones: No destructive bone lesions. CT/CT abdomen pelvis w con* [id number] IMPRESSION: 1. Moderate to severe diffuse constipation. No obstruction. 2. Mild sigmoid diverticulosis without acute diverticulitis. 3. Spleen is mildly enlarged at 14.2 cm in length. Prior measurement 11.5 cm. 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 4. No ascites or adenopathy. 5. Atherosclerosis aorta.
[2025-06-21] MEDS: iohexol 350 mg/mL 500 mL Btl (per mL) IV (09:27)
[2025-06-21] MEDS: iohexol 350 mg/mL 500 mL Btl (per mL) PO (09:27)
== END 2025-06-21 07:58 | disposition home or self-care (01) ==
PROVIDERS: PCP Family Medicine; Visit Provider Family Medicine
DX: K59.00 Constipation, unspecified (principal); K44.9 Diaphragmatic hernia without obstruction or gangrene; K86.89 Other specified diseases of pancreas; R16.1 Splenomegaly, not elsewhere classified; K57.30 Diverticulosis of large intestine without perforation or abscess without bleeding; K42.9 Umbilical hernia without obstruction or gangrene; N40.0 Benign prostatic hyperplasia without lower urinary tract symptoms; K40.90 Unilateral inguinal hernia, without obstruction or gangrene, not specified as recurrent
CPT/HCPCS: 74177

== ENCOUNTER → 2025-06-28 09:12 | Outpatient (BNVA) | payer MEDICARE, OTHER, SELFPAY | PROVIDERS: PCP Family Medicine; Visit Provider Family Medicine | DX: Z51.81 Encounter for therapeutic drug level monitoring (principal); D72.819 Decreased white blood cell count, unspecified; Z13.6 Encounter for screening for cardiovascular disorders | CPT/HCPCS: 80061; 85025 ==

== ENCOUNTER 2025-07-25 15:35 | Oncology outpatient (recurring) (ONCR) | payer MEDICARE, OTHER, SELFPAY | END 2025-08-12 23:59 | disposition home or self-care (01) | PROVIDERS: PCP Family Medicine; Visit Provider Internal Medicine Medical Oncology | DX: Z53.9 Procedure and treatment not carried out, unspecified reason; R16.1 Splenomegaly, not elsewhere classified; D69.6 Thrombocytopenia, unspecified; R59.0 Localized enlarged lymph nodes | CPT/HCPCS: 99205 ==

== ENCOUNTER 2025-09-05 09:55 | Oncology outpatient (recurring) (ONCR) | payer MEDICARE, OTHER, SELFPAY ==
[2025-09-05 10:24] LABS: Hematocrit 42.6 % (37-53); Hemoglobin 14.50 g/dL (11.27-16.99); Mean Corpuscular HGB Conc 34.0 g/dL (30-55); Mean Corpuscular Hemoglobin 27.8 pg (27-33); Mean Corpuscular Volume 81.6 fl (82-101); Nucleated Red Blood Cells % 0 %; Platelet Count 128 10^3/cmm (157-399); Red Blood Count 5.22 10^6/uL (3.85-5.65); White Blood Count 8.47 10^3/uL (3.29-11.43)
[2025-09-05 10:45] LABS: Albumin Level 4.3 g/dL (3.5-5.2); Alkaline Phosphatase 79 U/L (40-130); Anion Gap 14.8 (5-19); Aspartate Amino Transferase 18 U/L (0-40); Blood Urea Nitrogen 19 mg/dL (8-23); Calcium 9.5 mg/dL (8.5-10.5); Carbon Dioxide 25 mmol/L (22-29); Chloride 105 mmol/L (98-107); Globulin 3.0 g/dL (1.3-4.6); Glucose 113 mg/dL (65-115); Osmolality Calculated 293 mOsm/kg (285-295); Potassium 4.8 mmol/L (3.5-5.1); Sodium 140 mmol/L (136-145); Total Protein 7.3 g/dL (6.6-8.7)
[2025-09-05 10:55] LABS: Alanine Aminotransferase 17 U/L (0-41)
== END 2025-09-11 23:59 | disposition home or self-care (01) ==
PROVIDERS: PCP Family Medicine; Visit Provider Internal Medicine Medical Oncology
DX: R16.1 Splenomegaly, not elsewhere classified (principal); D69.6 Thrombocytopenia, unspecified
CPT/HCPCS: 36415; 80053; 85025; 99214